=== PATIENT | male | born 1980 | race Caucasian/White ===

== ENCOUNTER 2017-05-19 13:18 | Emergency (ER) | payer SELFPAY ==
[~2017-05-19] VITALS: Ht 180.3 cm; Wt 97.9 kg
[2017-05-19 13:42] VITALS: BP 180/105; PULSE 92; RESP 16; TEMP 98.1; O2SAT 97
[2017-05-19] MEDS ORDERED: PROPARACAINE HCL 0.5% OPHT SOLN 15 ML BTL RIGHT EYE ONE (14:00)
[2017-05-19] MEDS ORDERED: HYDR-3516 PO (14:35)
[2017-05-19] MEDS ORDERED: IBUP1TAB7 PO (14:35)
[2017-05-19] MEDS ORDERED: ERYTOIN10 RIGHT EYE (14:35)
--- NOTE | 2017-05-19 14:43 | PD ---
HPI Chief Complaint: Eye Problems/Injury Time Seen by Provider: 14:06 Travel History International Travel<30 days: No Contact w/Intl Traveler<30days: No Traveled to known affect area: No History of Present Illness HPI 36-year-old male presents to the ED for evaluation of possible foreign body to his right eye. Per patient he was using a paint pressure machine when he accidentally got pain into his eye. Per patient she had sharp pain. Per patient he was able to flush it at the area where he was working. Per patient he does not really have pain more more like a sensation of irritation to his eye. He does not know if there is pain still in there secondary to being on his eye. Denies any other medical issues. No urinary or bowel movement issues. Up-to-date with vaccinations. Pain per patient is minimal to moderate tenderness more irritation. States having some blurriness but otherwise no other symptoms. PFSH Past Medical History Medical History: Denies Significant Hx Tetanus Vaccination: < 5 Years Influenza Vaccination: No Past Surgical History Other Surgery: Yes ([facility]) Social History Alcohol Use: No Tobacco Use: No Substance Use: No Allergies-Medications (Allergen,Severity, Reaction): Coded Allergies: No Known Allergies (Unverified , 05/19/17) Reported Meds & Prescriptions Reported Meds & Active Scripts Active Hydrocodone-Acetamin 5-325 mg (Hydrocodone/Acetaminophen) 5 Mg-325 Mg Tablet 1 Tab PO Q6HR PRN Ibuprofen 800 Mg Tab 800 Mg PO Q6HR PRN Erythromycin Opth Oint 5 Mg/Gm Oint 1 Applic RIGHT EYE BID 10 Days Review of Systems Except as stated in HPI: all other systems reviewed are Neg Physical Exam Narrative GENERAL: SKIN: Warm and dry. HEAD: Atraumatic. Normocephalic. EYES: Pupils equal and round 4 mms reactive to light and accomodation. No scleral icterus. No injection or drainage. Irritation of the conjunctiva noted. Patient does have what appears to be white paint on the superior aspect of the cornea. About 1/4 cm of area with pain. No other sign of foreign body noted. EOM intact bilaterally. Peripheral vision intact bilaterally. Visual acuity within normal limits. Fluorescein stain did reveal foreign body as well as abrasion to the area with the paint is. ENT: No nasal bleeding or discharge. Mucous membranes pink and moist. Tongue is midline. No uvula irrigation. NECK: Trachea midline. No JVD. CARDIOVASCULAR: Regular rate and rhythm. RESPIRATORY: No accessory muscle use. Clear to auscultation. Breath sounds equal bilaterally. GASTROINTESTINAL: Abdomen soft, non-tender, nondistended. Hepatic and splenic margins not palpable. MUSCULOSKELETAL: Extremities without clubbing, cyanosis, or edema. No obvious deformities. NEUROLOGICAL: Awake and alert. No obvious cranial nerve deficits. Motor grossly within normal limits. Five out of 5 muscle strength in the arms and legs. Normal speech. PSYCHIATRIC: Appropriate mood and affect; insight and judgment normal. Data Data Last Documented VS Vital Signs Date Time Temp Pulse Resp B/P (MAP) Pulse Ox O2 Delivery O2 Flow Rate FiO2 05/19/17 13:42 98.1 92 16 180/105 (130) 97 Orders Orders Proparacaine 0.5% Opth Soln (Alcaine 0.5 (05/19/17 14:00) Ed Discharge Order (05/19/17 14:36) [facility] Medical Decision Making Medical Screen Exam Complete: Yes Emergency Medical Condition: Yes Medical Record Reviewed: Yes Differential Diagnosis Foreign body versus abrasion versus eye injury Narrative Course 36-year-old male presents to the ED for evaluation of foreign body to the right eye. Patient was properly examined and was found to have signs and symptoms consistent with appears to be right eye foreign body. Patient was found to have pain on his eye. Discussed this with Dr. Hathaway who recommended that we leave it alone. Antibiotic ointment to prevent infection and hopefully this will help get rid of it. Patient was given proparacaine drops here which seemed to break down the pain does every time I checked the eye and the pain seemed to be less and less. With a small cotton swab I was able to get the rest of the paint off with minimal discomfort for the patient. Patient was reassessed and does not appear to have any paint but does appear to patient does have abrasions to the cornea from the paint as it follows the same pattern where the pain was. At this time recommend trial of erythromycin ointment, pain medication as needed. Follow-up with PCP. See ED worsening symptoms. Patient was told that if anything worsens in the next 2 days to come back to the ED. He agrees and understands. Diagnosis Primary Impression: Eye foreign body Qualified Codes: T15.91XA - Foreign body on external eye, part unspecified, right eye, initial encounter Additional Impression: Corneal abrasion, right Qualified Codes: S05.01XA - Injury of conjunctiva and corneal abrasion without foreign body, right eye, initial encounter Referrals: Jessica Hathaway MD Patient Instructions: General Instructions Additional Instructions: Take medications as prescribed. Only use pain medication if needed. Apply ointment for the next 7 days at least 3 times a day to prevent infection. Symptoms should improve in the next 48 hours. If no improvement or worsening of vision, back to the ED for evaluation. Med/Other Pt SpecificInfo: Prescription(s) given Scripts Hydrocodone/Acetaminophen (Hydrocodone-Acetamin 5-325 mg) 5 Mg-325 Mg Tablet 1 TAB PO Q6HR Y for PAIN SCALE 1 TO 10, #10 Prov: Daniel Curiel MD 05/19/17 Ibuprofen (Ibuprofen) 800 Mg Tab 800 MG PO Q6HR Y for PAIN, #20 TAB 0 Refills Prov: Daniel Curiel MD 05/19/17 Erythromycin Opth Oint (Erythromycin Opth Oint) 5 Mg/Gm Oint 1 APPLIC RIGHT EYE BID for Infection for 10 Days, #1 TUBE 0 Refills Prov: Daniel Curiel MD 05/19/17 Disposition: 01 DISCHARGE HOME Condition: Stable Simone Hylton May 19, 2017 14:43
== END 2017-05-19 15:06 | disposition home or self-care (01) ==
LOC: PHEFT 13:18
DX: T15.91XA Foreign body on external eye, part unspecified, right eye, initial encounter (principal); S05.01XA Injury of conjunctiva and corneal abrasion without foreign body, right eye, initial encounter; W22.8XXA Striking against or struck by other objects, initial encounter
CPT/HCPCS: 65220